=== PATIENT | female | born 1985 ===

== ENCOUNTER 2017-06-15 10:06 | Emergency (ER) | payer BC, OTHER ==
[2017-06-15] MEDS ORDERED: Tetracaine 0.5% OPTH.SOL 4 ML* 1 DROP BTL ONE (10:28)
[2017-06-15] MEDS ORDERED: BSS OPTH.SOL* BTL ONE (10:28)
[2017-06-15] MEDS ORDERED: Fluorescein Sod TOPICAL 0.6* 0.6 MG TEST OPHTHALMIC ONE (10:28)
--- NOTE | 2017-06-15 10:49 | UC ---
Eye Complaint HPI - HPI Summary HPI Summary: 32 yo female with FB sensation x 1 1/2 days (left eye) felt like an eye lash rib her eye no pain unless she blinkd - History of Current Complaint Chief Complaint: UCEye Stated Complaint: LEFT EYE COMPLAINT Time Seen by Provider: 06/15/17 10:30 Hx Obtained From: Patient Hx Last Menstrual Period: 05/29/17 Onset/Duration: Sudden Onset, Gradual Onset Severity Initially: Moderate Severity Currently: Mild Pain Intensity: 0 - unless she blinks Pain Scale Used: 0-10 Numeric Location of Injury: Eye Lid (upper) Character: Foreign Body Sensation Aggravating Factor(s): Blinking Associated Signs And Symptoms: Positive: Negative - Allergies/Home Medications Allergies/Adverse Reactions: Allergies Allergy/AdvReac Type Severity Reaction Status Date / Time amoxicillin Allergy Rash Verified 06/15/17 10:20 azithromycin Allergy Rash Verified 06/15/17 10:20 Penicillins Allergy Rash Verified 06/15/17 10:20 Home Medications: Home Medications Acetaminophen [Acetaminophen Extra Strength] 1,000 mg PO ONCE PRN 06/15/17 [ History Confirmed 06/15/17] Norgestimate-Ethinyl Estradiol [Trinessa Tablet] 1 tab PO DAILY 06/15/17 [ History Confirmed 06/15/17] PMH/Surg Hx/FS Hx/Imm Hx Previously Healthy: Yes - Surgical History Surgical History: None - Family History Known Family History: Positive: Hypertension - Social History Alcohol Use: Occasionally Substance Use Type: None Smoking Status (MU): Never Smoked Tobacco Review of Systems Constitutional: Negative Skin: Negative Eyes: Negative ENT: Negative Respiratory: Negative Cardiovascular: Negative Gastrointestinal: Negative Genitourinary: Negative Motor: Negative Neurovascular: Negative Musculoskeletal: Negative Neurological: Negative Psychological: Negative Is Patient Immunocompromised?: No All Other Systems Reviewed And Are Negative: Yes Physical Exam Triage Information Reviewed: Yes Appearance: Well-Appearing, No Pain Distress, Well-Nourished Vital Signs: Initial Vital Signs Temp 98.6 F 06/15/17 10:21 Pulse 81 06/15/17 10:21 Resp 16 06/15/17 10:21 BP 124/72 06/15/17 10:21 Pulse Ox 100 06/15/17 10:21 Vital Signs Reviewed: Yes Eyes: Positive: Other: - lid everted (left upper lid red temporal aspect- no fb noted, negative flourescein staining. Negative: Conjunctiva Clear, Conjunctiva Inflamed ENT: Positive: Hearing grossly normal. Negative: Nasal congestion, Nasal drainage, Trismus, Muffled voice Neck: Positive: Supple Respiratory: Positive: No respiratory distress, No accessory muscle use Musculoskeletal Exam: Normal Musculoskeletal: Positive: ROM Intact Neurological: Positive: Alert Psychological Exam: Normal Skin Exam: Normal Eye Complaint Course/Dx - Course Course Of Treatment: patient states she will see her eye MD tomorrow - Differential Dx/Diagnosis Provider Diagnoses: foreign body sensation left upper lid Discharge - Sign-Out/Discharge Documenting (check all that apply): Discharge - Discharge Plan Condition: Stable Disposition: HOME Referrals: No Primary Care Phys,NOPCP [Primary Care Provider] - Additional Instructions: I did not see a foreign body or corneal abrasion I suggest that you try ZADITOR eye drops OTC See your eye doctor tomorrow if foreign body sensation persists - Billing Disposition and Condition Condition: STABLE Disposition: HOME
== END 2017-06-15 10:47 | disposition home or self-care (01) ==
LOC: UCCORT 10:06
DX: H57.9 Unspecified disorder of eye and adnexa (principal); Z88.3 Allergy status to other anti-infective agents; Z88.0 Allergy status to penicillin
CPT/HCPCS: 99202; A9270-GY; G0463